=== PATIENT | female | born 1950 | race Caucasian/White ===

== ENCOUNTER → 2017-02-07 | Outpatient (CLI) | payer BC | END | disposition home or self-care (01) | LOC: RAD.S 14:08 | DX: Z03.89 Encounter for observation for other suspected diseases and conditions ruled out (principal) ==

== ENCOUNTER 2017-02-20 09:53 | Day surgery (SDC) | payer BC ==
[~2017-02-20] VITALS: Ht 162.6 cm; Wt 85.6 kg
--- NOTE | 2017-03-14 13:26 | OR ---
ADMIT: 02/20/2017 RM/LOC: [facility] MR#: [id number] [address] [address] KENZIE HERRMANN Bi [address] [place] [address] Operative/Delivery Room Report SEX: F AGE: 66 : 1950 SURGERY DATE: 02/20/2017 SURGEON: Reese Last MD PREOPERATIVE DIAGNOSES: 1. Chronic cholecystitis. 2. Cholelithiasis. POSTOPERATIVE DIAGNOSES: 1. Chronic cholecystitis. 2. Cholelithiasis. FINAL PATHOLOGY: Pending. PROCEDURE: Laparoscopic cholecystectomy. CONSTRUCTION SECRETARY: ZEESHAN Swanson Student. ANESTHESIA: General endotracheal tube anesthesia. ESTIMATED BLOOD LOSS: 25 mL or less. INDICATION FOR PROCEDURE: Please see H and P. SUMMARY: After the risks, benefits, possible complications, and alternatives have been explained, and informed consent had been obtained, the patient was taken back to the operating room, underwent general endotracheal tube anesthesia, and the surgical field was prepped and draped in a sterile manner. Because of the previous surgery and lower midline incision, I started off in the epigastric region making a small incision and then sharply and kind of bluntly got into the abdomen there, got my large port and insufflated the abdomen with CO2 and then I was able to look back and I did have to come off midline, a little above the belly button and to the patient's right side because of some adhesions there. I placed a 5 mm port there and then I was able to place 2 right upper quadrant 5 mm ports. The gallbladder was raised superiorly and anteriorly as you can see there in picture 1. Slowly dissected out the cystic duct, directly after the gallbladder was clipped proximally, distally, and divided. Behind this, the cystic artery was dissected out. It ADMIT: 02/20/2017 RM/LOC: [facility] MR#: [id number] [id number] [facility] [address] [place], [place] [address] KENZIE HERRMANN [address] [place] [address] Operative/Delivery Room Report SEX: F AGE: 66 : 1950 was clipped proximally, distally, and divided as seen in picture 3. Then, the gallbladder was removed from the liver bed using electrocautery and Endoshears, placed in an EndoCatch bag and removed through the epigastric port site. Inspecting the liver bed, there was good hemostasis. Irrigating with as much irrigation as possible. I injected some 0.5% Marcaine in the incision sites for pain control, closed the fascia of the epigastric port site with an 0 Polysorb suture using the suture passer, and then the skin was all closed with 4-0 Monocryl after all the ports were removed. She tolerated it well. She was being extubated when I left the room. She was in stable and satisfactory condition. Reese Last MD/ kranthi JOB #: [id number] CC: Reese Last, Attending Physician Santy Hedrick, Family Physician Santy Hedrick MD
== END 2017-02-20 17:28 | disposition home or self-care (01) ==
LOC: SSS 09:53
PROC: 0FT44ZZ Resection of Gallbladder, Percutaneous Endoscopic Approach (ICD-10-PCS; principal; 2017-02-20)
DX: K80.10 Calculus of gallbladder with chronic cholecystitis without obstruction (principal); I10 Essential (primary) hypertension; K57.30 Diverticulosis of large intestine without perforation or abscess without bleeding; E11.9 Type 2 diabetes mellitus without complications; Z90.710 Acquired absence of both cervix and uterus; Z98.51 Tubal ligation status; Z79.899 Other long term (current) drug therapy; Z88.6 Allergy status to analgesic agent